=== PATIENT | female | born 1980 | race Caucasian/White ===

== ENCOUNTER 2017-03-01 21:22 | Emergency (ER) | payer SELFPAY ==
[2017-03-01] MEDS ORDERED: DEXAMETHASONE SOD PHOSPHATE 10 MG/ML VIAL IM ONE (22:02)
[2017-03-01] MEDS ORDERED: traMADol HCL 50 MG TABLET PO ONE (22:02)
[2017-03-01] MEDS ORDERED: METHYLPREDNISOLONE ACETATE 80 MG/ML VIAL IM ONE (22:02)
--- NOTE | 2017-03-01 22:08 | ERNOTE ---
Lower Extremity HPI - General Lower Extremities Pain: foot: right Time Seen by Provider: 03/01/17 22:00 Source: patient Exam Limitations: no limitations - Immun/Allergies/Home Medications Immunizations: IMMUNIZATION HX Immunizations Up to Date Yes History of Influenza Vaccine No Hx Pneumococcal Vaccination No Allergies/Adverse Reactions: Allergies Allergy/AdvReac Type Severity Reaction Status Date / Time promethazine HCl AdvReac Intermediate Other Verified 03/01/17 21:28 [From Phenergan] Home Medications: HOME MEDICATIONS Nabumetone [Relafen] 500 mg PO BID #20 tab 03/01/17 [Last Taken Unknown] - History of Present Illness Narrative: Pt has plantar faciitis and has had a flare about a month ago which nearly resolved then began bothering her again. now having typical pain after rest and with excessive ambulation. She has been moving and thus doing a lot of walking. Review of Systems - Review of Systems Constitutional: Absent: recent illness EYE: Present: no symptoms reported ENT: Present: no symptoms reported Respiratory: Present: no symptoms reported Cardiology: Present: no symptoms reported Musculoskeletal: Present: See HPI Skin: Absent: rash Neurological: Absent: numbness, tingling Endocrine: Present: no symptoms reported Hematologic/Lymphatic: Present: no symptoms reported Psych: Present: no symptoms reported - Patient's Past Medical History Patient History - Medical: No pertinent hx, Other Patient History - Cardiac/Respiratory: No pertinent hx Patient History - Cancer: No Hx of Cancer Patient History - Surgical Procedures: Hysterectomy Patient History - Other: None LMP (females 10-50): other - Social History Living Situations: home Psych History: No pertinent hx Smoking Status: Never smoker - Immunizations Immunizations Up to Date: Yes Hx Pneumococcal Vaccination: No History of Influenza Vaccine: No Physical Exam - Physical Exam General Appearance: Present: wd/wn, no apparent distress Neck: Present: normal inspection, supple Respiratory: Present: no respiratory distress, no accessory muscle use Peripheral Pulses: N=norm/S=strong/W=weak/B=bound/A=absent: Dorsalis-pedis (R): Normal Extremity Exam: Present: normal except - - right plantar fascia tender at the origin Neurological Exam: Present: alert, oriented, normal mood/affect ED Progress - Vital Signs Vital Signs: Vital Signs 03/01/17 21:25 Temperature 36.4 C L Pulse Rate 81 Respiratory 16 Rate Blood Pressure 145/106 O2 Sat by Pulse 98 Oximetry - Progress/Reassessment Chief Complaint: Lower Extremity Pain/ Injury Departure Clinical Impression: Plantar fasciitis - Departure Disposition: Home self-care Condition: Good Instructions: Plantar Fasciitis Prescriptions: Nabumetone [Relafen] 500 mg PO BID #20 tab
[2017-03-01] MEDS ORDERED: DEXAMETHASONE SOD PHOSPHATE 10 MG/ML VIAL ONE (22:09)
[2017-03-01] MEDS ORDERED: METHYLPREDNISOLONE ACETATE 80 MG/ML VIAL ONE (22:09)
[2017-03-01] MEDS ORDERED: traMADol HCL 50 MG TABLET ONE (22:09)
--- OUTSIDE RECORDS SUMMARY | 2017-03-01 22:17 | XMS REPORT | Continuity of Care Document ---
:1980 Author Organization [employer] [place] [address] Care Team Providers Name Role Phone Provider, None Per Patient Primary Care Provider Unavailable Source Comments This disclosure is being made pursuant to the [employer] program and maynot contain all information available regarding this patient.[employer] Active Allergies and Adverse Reactions Allergen Noted Date Severity Reactions Comments Codeine 03/21/2015 Low Rash Phenergan 03/21/2015 Low Anxiety Current Medications Be aware that medications may not be up to date as of this document. Alwaysverify current medications with the patient. Prescription Sig. Disp. Refills Start Date End Date Status ibuprofen Take 1 tablet by 30 tablet 0 03/30/2015 Active (ADVIL,MOTRIN) 800 MG mouth every 6 tablet (six) hours as needed for Pain. potassium chloride SA Take 2 tablets by 8 tablet 0 04/09/2015 Active (K-DUR,KLOR-CON) 20 MEQ mouth 2 (two) tablet times daily. traMADol (ULTRAM) 50 MG Take 1 tablet by 5 tablet 0 05/23/2015 Active tablet mouth every 6 (six) hours as needed for Pain. Active Problems Problem Noted Date Hyperthyroidism 04/09/2015 Volume depletion 04/09/2015 Hypokalemia 04/09/2015 Pain, dental 03/21/2015 Social History Tobacco Use Types Packs/Day Years Used Date Never Smoker Smokeless Tobacco: Never Used Last Filed Vital Signs Vital Sign Reading Time Taken Blood Pressure 145/75 07/17/2015 5:29 AM CDT Pulse 114 07/17/2015 5:29 AM CDT Temperature 35.9 C (96.6 F) 07/17/2015 1:05 AM CDT Respiratory Rate 18 07/17/2015 5:29 AM CDT Height 1.524 m (5') 07/17/2015 1:05 AM CDT Weight 68.947 kg (152 lb) 07/17/2015 1:05 AM CDT Body Mass Index 29.69 07/17/2015 1:05 AM CDT Oxygen Saturation 100% 07/17/2015 5:29 AM CDT Plan of Care Health Maintenance Due Date Last Done Comments Tetanus/Pertussis (1 - Tdap) 2000 Pap Smear 2002 Retired-INFLUENZA VACCINE 06/02/2016 Results from Last 3 Months Not on file
[2017-03-01 22:22] VITALS: BP 150/88
== END 2017-03-01 22:21 | disposition home or self-care (01) ==
LOC: ER 21:22
DX: M72.2 Plantar fascial fibromatosis (principal)